=== PATIENT | female | born 1995 | race Caucasian/White ===

== ENCOUNTER 2025-02-02 11:12 | Emergency (ER) | payer OTHER, MEDICAID ==
[2025-02-02] MEDS ORDERED: Dexamethasone 10 MG/ML VIAL ONE (12:48)
[2025-02-02] MEDS ORDERED: Ketorolac Tromethamine 30 MG (1 mL) VIAL ONE (12:54)
== END 2025-02-02 13:11 | disposition home or self-care (01) ==
LOC: CSHERS 11:12
DX: M25.551 Pain in right hip (principal); F17.290 Nicotine dependence, other tobacco product, uncomplicated
CPT/HCPCS: 72170; 73502; J1100; J1885; 96372; 99283